=== PATIENT | male | born 1935 | race Hispanic/Latino ===

== ENCOUNTER 2016-08-01 06:34 | Day surgery (SDC) | payer MEDICARE ==
[~2016-08-01 06:34] MED LIST: ANCEF/STERILE WATER 2 GM/20 ML 2 GM/20 ML SYRINGE IV NR; NACL 0.9% 1000 ML 1,000 ML IV SCH; PEPCID PO NR
[2016-08-01] MEDS ORDERED: SUBLIMAZE IV PRN (07:36)
[2016-08-01] MEDS ORDERED: ZOFRAN IV PRN (07:36)
--- NOTE | 2016-08-01 07:38 | Anesthesia Day of Surgery ---
Anesthesia Day of Surgery - Day of Surgery Patient Examined: Yes Patient H&P Reviewed: Yes Patient is NPO: Yes Beta Blockers: Yes Cardiac Clearance: No Pulmonary Clearance: No
--- NOTE | 2016-08-01 07:38 | Anesthesia Consultation ---
Anesthesia Consult and Med Hx Date of service: 08/01/16 - Airway Anesthetic Teeth Evaluation: Good ROM Head & Neck: Inadequate Mental/Hyoid Distance: Inadequate Mallampati Class: Class III Intubation Access Assessment: Possibly Difficult - Pulmonary Exam CTA: Yes - Cardiac Exam Cardiac Exam: RRR - Pre-Operative Health Status ASA Pre-Surgery Classification: ASA3 Proposed Anesthetic Plan: General - Pulmonary Hx Smoking: Yes (STOPPED 1964) Hx Asthma: No SOB: No Hx Sleep Apnea: No (AMEENA PRE SCREEN HIGH RISK) - Cardiovascular System Hx Hypertension: Yes (X 10 YRS) Hx Coronary Artery Disease: No Hx Heart Attack/AMI: No Hx Cardia Arrhythmia: Yes (A Fib- on Warfarin. 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
[2016-08-01] MEDS ORDERED: LACTATED RINGERS 1,000 ML IV SCH (08:00)
[2016-08-01 08:14] LABS: INR 1.11 (0.87-1.13)
[2016-08-01] MEDS ORDERED: DIPRIVAN 10 MG/ML IV ONE (08:34)
[2016-08-01] MEDS ORDERED: SUBLIMAZE ONE (08:34)
[2016-08-01] MEDS ORDERED: OMNIPAQUE 300 MG/50 ML (CATH LAB) IV ONE (09:06)
[2016-08-01] MEDS ORDERED: WATER FOR IRRIG STERILE IR ONE (09:07)
[2016-08-01] MEDS ORDERED: ZOFRAN ONE (09:29)
--- NOTE | 2016-08-01 09:57 | Fluoroscopy Report ---
RETROGRADE PYELOGRAM: There is adequate filling of the ureters and intrarenal collecting systems with no filling defects or anatomic abnormalities identified.
[2016-08-01] MEDS: DILAUDID IV PRN ×4 (10:00→10:30)
--- NOTE | 2016-08-01 10:14 | Post Anesthesia Evaluation ---
- Post Anesthesia Evaluation Patient Participated: Yes Airway Patent: Yes Stable Respiratory Function: Yes Nausea/Vomiting: No Temp > 96.8F: Yes Pain Manageable: Yes Adequeate Hydration: Yes Anesthesia Complications: No Block Receding Appropriately: Not Applicable Patient on Ventilator: No
--- NOTE | 2016-08-01 10:29 | Post Operative Note ---
Date of procedure: 08/01/16 Pre-op diagnosis: bladder cancer Post-op diagnosis: same Findings: 3 small red patches Procedure: cysto rpgs biopsies Anesthesia: GETA Surgeon: RAÚL DAVIDSON Estimated blood loss: none Pathology: list (bladder) Specimen disposition: to lab Condition: stable Disposition: PACU
--- NOTE | 2016-08-01 10:31 | Discharge Summary ---
Short Stay Discharge Plan Activity: other (no straining ) Weight Bearing Status: Full Weight Bearing Diet: low fat, low cholesterol, low salt Special Instructions: other (inc fluids ) Durable Medical Equipment Needed Upon Discharge: other (foleys x 3 days ) Follow up with: JEZ JUNG MD [Primary Care Provider] - 7 Days RAÚL DAVIDSON MD [Staff Physician] - 14 Days
--- NOTE | 2016-08-01 11:42 | Operative Report ---
PREOPERATIVE DIAGNOSIS: History of bladder cancer. POSTOPERATIVE DIAGNOSIS: History of bladder cancer. PROCEDURE: Cystoscopy, bladder biopsies, retrograde. SURGEON: Madhu Avalos MD ANESTHESIA: General. FINDINGS: This is a gentleman with a history of bladder cancer. He has had multiple procedures over many years. He is almost 81 years of age. No active bleeding, no pain. DESCRIPTION OF PROCEDURE: The patient was brought to the operating room and placed on the operating table. Following induction of anesthesia, placed in lithotomy position, prepped and draped in usual sterile fashion. The urethra had some strictures and some narrowing. We easily bypassed it under direct vision. The prostatic urethra showed trilobar hypertrophy. Orifice were tucked in behind the middle lobe. Retrograde showed some air bubbles on the right. Good filling, good drainage. There were 3 tiny 1 cm erythematous areas, one at the dome, one posteriorly, one right lateral. These were biopsied along with the prostatic urethra. The patient tolerated the procedure well. The area was fulgurated, brought to recovery room in stable condition. JOB# [id number] CHANDLER/KELSEA
[2016-08-01 17:43] VITALS: BP 140/84
== END 2016-08-01 11:50 | disposition home or self-care (01) ==
LOC: OR 06:34
PROVIDERS: ATTEND Urology
DX: Z85.51 Personal history of malignant neoplasm of bladder (principal); N40.0 Benign prostatic hyperplasia without lower urinary tract symptoms; N35.9 Urethral stricture, unspecified; I10 Essential (primary) hypertension; I48.91 Unspecified atrial fibrillation; K21.9 Gastro-esophageal reflux disease without esophagitis; Z72.89 Other problems related to lifestyle; Z79.01 Long term (current) use of anticoagulants; Z87.891 Personal history of nicotine dependence; Z85.828 Personal history of other malignant neoplasm of skin; Z86.718 Personal history of other venous thrombosis and embolism
CPT/HCPCS: 36415; 52204; 74420; 85610; 85730; 88305; A4217; J1170; J2405; J2704; J3010; J7030; Q9967; 88342; C1758